=== PATIENT | female | born 1960 | race African-American/Black ===

== ENCOUNTER 2019-05-01 11:32 | Emergency (ER) | payer OTHER ==
[~2019-05-01] VITALS: Ht 167.6 cm; Wt 70.3 kg
[2019-05-01 11:57] VITALS: BP 150/71
--- NOTE | 2019-05-01 12:32 | PHYS DOC ---
Adult General Chief Complaint Chief Complaint: MECHANICAL FALL HPI HPI Patient is a 58 year old female who presents with with at the [facility] yesterday and there was water from a leaky roof and she slipped and fell landing on her left side. Patient states this morning she awoke and she has left patti ulder pain, left hip pain, and Left lower pack pain. Patient states she takes aleve for pain. Patient rates her pain at a 8/10. Review of Systems Review of Systems Musculoskeletal: left low back pain or Left shoulder and hip joint pain [] All other systems were reviewed and found to be within normal limits, except as documented in this note. Allergies Allergies Allergies Coded Allergies Type Severity Reaction Last Updated Verified Sulfa (Sulfonamide Antibiotics) Allergy Intermediate unknown 05/01/19 Yes Physical Exam Physical Exam Constitutional: Well developed, well nourished, no acute distress, non-toxic appearance. [] HENT: Normocephalic, atraumatic, bilateral external ears normal, oropharynx moist, no oral exudates, nose normal. [] Eyes: PERRLA, EOMI, conjunctiva normal, no discharge. [] Neck: Normal range of motion, no tenderness, supple, no stridor. [] Cardiovascular:Heart rate regular rhythm, no murmur [] Lungs & Thorax: Bilateral breath sounds clear to auscultation [] Abdomen: Bowel sounds normal, soft, no tenderness, no masses, no pulsatile masses. [] Skin: Warm, dry, no erythema, no rash. [] Back: No tenderness, no CVA tenderness. [] Extremities: No tenderness, no cyanosis, no clubbing, ROM intact, no edema. [] Neurologic: Alert and oriented X 3, normal motor function, normal sensory function, no focal deficits noted. [] Psychologic: Affect normal, judgement normal, mood normal. Normal physical exam[] Current Patient Data Vital Signs Vital Signs Date Time Temp Pulse Resp B/P (MAP) Pulse Ox O2 Delivery O2 Flow Rate FiO2 05/01/19 11:57 97.9 90 18 150/71 (97) 99 Room Air 97.9 EKG EKG [] Radiology/Procedures Radiology/Procedures [] Impressions: [facility] [address] [place] [address] IMAGING REPORT Signed PATIENT: LILA SHARPE ACCOUNT: [id number] : 1960 LOCATION: ER AGE: 58 SEX: F EXAM STATUS: REG ER ORD. PHYSICIAN: RICO MORALES APRN REASON: pain, fall PROCEDURE: SHOULDER 2+V LEFT Exam performed:3 views left shoulder and pelvis and left hip Indication: Pain, status post fall Date of service: 05/01/2019. Comparison: None available Findings : AP radiographs of the shoulder in internal and external rotation as well as a Y-view reveal the osseous structures to be intact and well aligned. The joint space is well-preserved. The articular margins are smooth. Single AP view pelvis and AP and frog-leg lateral view of the left are obtained. Normal alignment of both hip and sacroiliac joints is preserved. There is no acute fracture or dislocation. No soft tissue swelling or foreign body seen. Nonspecific bowel gas pattern. Impression: No acute abnormality seen in the left shoulder. Negative left hip. Electronically signed by: Alice Villa MD (05/01/2019 1:22 PM) [facility] DICTATED and SIGNED BY: ALICE VILLA MD DATE: 05/01/19 1322 Course & Med Decision Making Course & Med Decision Making Patient is a 58 year old female who presents with at the [facility] yesterday and there was water from a leaky roof on the floor and she slipped and fell landing on her left side. Patient states this morning she awoke and she has left shoulder pain, left hip pain, and Left lower pack pain. Patient states she takes aleve for pain. Patient rates her pain at a 8/10. Ambulatory with a steady gait. No extremity edema. No bruising or deformity to her back. No focal bony spinal tenderness. Intact range of motion of the neck. Denies hitting her head. Denies headache, dizziness, numbness or tingling, chest pain, soa, visual changes, blood thinners. Alert and oriented. PERRLA. Skin pink warm and dry. No pain with palpation to her back or hips. Patient has intact range of motion of her hips and shoulders. No pain to palpation with her left shoulder. No deformity to any joints. No bruising to the patients body, no abrasions, no lacerations. No crepitus. Lungs clear to auscultation all lobes. Abdomen is soft and nontender. Xrays show no acute findings. Patient to follow up with primary care. Ana Disclaimer Ana Disclaimer This electronic medical record was generated, in whole or in part, using a voice recognition dictation system. Departure Departure Impression: Primary Impression: Fall Additional Impressions: Contusion Muscle strain Disposition: HOME, SELF-CARE Condition: STABLE Patient Instructions: Contusion, Fall Prevention and Home Safety, Muscle Strain Additional Instructions: Call your doctor tomorrow for follow up. Use heating pads and ice. Take medications as prescribed. Scripts Orphenadrine Citrate (ORPHENADRINE CITRATE) 100 Mg Tablet.er 1 TAB PO BID, #20 TAB Prov: RCIO MORALES APRN 05/01/19 Hydrocodone/Apap 5-325 (NORCO 5-325 TABLET) 1 Each Tablet 1 TAB PO PRN Q6HRS PRN for PAIN, #10 TAB 0 Refills Prov: RICO MORALES APRN 05/01/19 Problem Qualifiers Primary Impression: Fall Encounter type: initial encounter Qualified Codes: W19.XXXA - Unspecified fall, initial encounter Additional Impressions: Contusion Encounter type: initial encounter Contusion area: shoulder Laterality: left Qualified Codes: S40.012A - Contusion of left shoulder, initial encounter RICO MORALES APRN May 01, 2019 12:32
--- NOTE | 2019-05-01 13:25 | RAD ---
Exam performed:3 views left shoulder and pelvis and left hip Indication: Pain, status post fall Date of service: 05/01/2019. Comparison: None available Findings : AP radiographs of the shoulder in internal and external rotation as well as a Y-view reveal the osseous structures to be intact and well aligned. The joint space is well-preserved. The articular margins are smooth. Single AP view pelvis and AP and frog-leg lateral view of the left are obtained. Normal alignment of both hip and sacroiliac joints is preserved. There is no acute fracture or dislocation. No soft tissue swelling or foreign body seen. Nonspecific bowel gas pattern. Impression: No acute abnormality seen in the left shoulder. Negative left hip. Electronically signed by: Alice Villa MD (05/01/2019 1:22 PM) [facility]
[2019-05-01] MEDS ORDERED: HYDR-3164 PO (13:43)
[2019-05-01] MEDS ORDERED: ORPH100T PO (13:43)
== END 2019-05-01 14:20 | disposition home or self-care (01) ==
LOC: ER 11:32
DX: S46.812A Strain of other muscles, fascia and tendons at shoulder and upper arm level, left arm, initial encounter (principal); S76.012A Strain of muscle, fascia and tendon of left hip, initial encounter; S39.012A Strain of muscle, fascia and tendon of lower back, initial encounter; Z88.2 Allergy status to sulfonamides; W01.0XXA Fall on same level from slipping, tripping and stumbling without subsequent striking against object, initial encounter; Y93.89 Activity, other specified; Y92.520 Airport as the place of occurrence of the external cause; Y99.8 Other external cause status
CPT/HCPCS: 73030; 73502; 99284